=== PATIENT | female | born 1995 | race Caucasian/White ===

== ENCOUNTER 2019-12-18 14:02 | Emergency (ER) | payer MEDICAID ==
[2019-12-18] MEDS ORDERED: Fluorescein 1 MG Ophth Strip EYERT ONE (15:08)
[2019-12-18] MEDS ORDERED: Tetracaine HCl/PF 0.5% 4 ML Bottle EYERT ONE (15:08)
[2019-12-18] MEDS ORDERED: Ketorolac 60 MG/2 ML SDV IM ONE (15:24)
[2019-12-18] MEDS ORDERED: Dexamethasone/Tobramycin 0.1-0.3% Ophth Susp 2.5 ML Bottle EYERT SCH (15:30)
--- NOTE | 2019-12-18 15:30 | EDM.PDOC ---
ED HPI GENERAL MEDICAL PROBLEM - General Chief Complaint: Eye Problems Stated Complaint: EYE PROBLEMS Time Seen by Provider: 12/18/19 15:00 Source of Information: Reports: Patient History Limitations: Reports: No Limitations - History of Present Illness INITIAL COMMENTS - FREE TEXT/NARRATIVE: Patient presents to ER with complaints of right eye pain and swelling. Has discomfort to eye and around since yesterday. STarted noting eye irritation yesterday, thought it was possibly her contact so removed it. Did not notice any change. She applied ice packs without relief. Eye has been tearing, sensitive to light. Tried Visine to eye without relief. This am when she awoke, she had lid swelling and redness as well. Onset: Gradual Duration: Hour(s):, Getting Worse Location: Reports: Face Quality: Reports: Burning Severity: Severe Associated Symptoms: Reports: No Other Symptoms Eye Pain Score (Numeric/FACES): 9 - Related Data Allergies Allergy/AdvReac Type Severity Reaction Status Date / Time No Known Allergies Allergy Verified 12/18/19 15:00 Past Medical History - Past Health History Medical/Surgical History: Denies Medical/Surgical History - Past Surgical History HEENT Surgical History: Reports: Tonsillectomy Female Surgical History: Reports: Section, Other (See Below) Other Female Surgeries/Procedures: lapascropy for endometriosis Social & Family History - Tobacco Use Smoking Status *Q: Never Smoker - Recreational Drug Use Recreational Drug Use: No ED ROS GENERAL - Review of Systems Review Of Systems: See Below Constitutional: Denies: Fever, Chills, Malaise, Weakness HEENT: Reports: Eye Discharge, Eye Pain, Vision Change. Denies: Rhinitis, Sinus Problem, Throat Pain Respiratory: Denies: Shortness of Breath, Cough Cardiovascular: Denies: Chest Pain, Edema, Lightheadedness Endocrine: Denies: Fatigue GI/Abdominal: Reports: No Symptoms : Reports: No Symptoms Musculoskeletal: Reports: No Symptoms ED EXAM GENERAL W FULL EYE - Physical Exam Exam: See Below Exam Limited By: No Limitations General Appearance: Alert, WD/WN, Mild Distress Eye Exam: Right Eye: Conjunctival Injection, Corneal Abrasion, Left Eye: Normal Inspection, Bilateral Eye: EOMI, PERRL Visual Acuity (R) 20/: 100 (patient admits vision is very poor in her right eye without her contact, unsure of baseline) Eyelids: Right: Erythema Conjunctiva & Sclera: Right: Injected Cornea Exam: Right: Corneal Abrasion (has small abrasion to the center of pupil region), Examined with Flourescein Extraocular Movements: Bilateral: Intact Pupils: Normal Accommodation Pupillary Size: Bilateral: 4 mm Pupillary Reaction: Bilateral: Brisk ED EYE w/ Add Procedure - Eye Procedure Alcaine Drops Administered: Yes Course - Vital Signs Last Recorded V/S: Last Vital Signs Temp 97.8 F 12/18/19 15:04 Pulse 79 12/18/19 15:04 Resp 16 12/18/19 15:04 BP 146/79 H 12/18/19 15:04 Pulse Ox 100 12/18/19 15:04 - Orders/Labs/Meds Orders: Active Orders 24 hr Category Date Time Status Dexamethasone/Tobramycin [Tobradex Ophth Susp] Med 12/18/19 15:30 Active See Dose Instructions EYERT Q4H Medication Orders Tobramycin/Dexamethasone (Tobradex Ophth Susp) 0 ml EYERT Q4H BALTA Last Admin: 12/18/19 15:42 Dose: 2 drop Documented by: Meds: Medications Generic Name Dose Route Start Last Admin Trade Name Freq PRN Reason Stop Dose Admin Tobramycin/Dexamethasone 0 ml 12/18/19 15:30 12/18/19 15:42 Tobradex Ophth Susp EYERT 2 drop Q4H BALTA Administration Discontinued Medications Generic Name Dose Route Start Last Admin Trade Name Freq PRN Reason Stop Dose Admin Fluorescein Sodium 1 mg 12/18/19 15:08 Ful-Bev EYERT 12/18/19 15:09 ONETIME ONE Ketorolac Tromethamine 60 mg 12/18/19 15:24 12/18/19 15:43 Toradol IM 12/18/19 15:25 60 mg ONETIME ONE Administration Tetracaine HCl 1 ml 12/18/19 15:08 Tetracaine 0.5% Steri-Unit Olamide EYERT 12/18/19 15:09 ONETIME ONE Departure - Departure Time of Disposition: 15:46 Disposition: Home, Self-Care 01 Condition: Good Clinical Impression: Corneal abrasion, Uveitis of right eye - Discharge Information *PRESCRIPTION DRUG MONITORING PROGRAM REVIEWED*: No *COPY OF PRESCRIPTION DRUG MONITORING REPORT IN PATIENT MILA: No Instructions: Corneal Abrasion, [id number] Referrals: PCP,None [Primary Care Provider] - Forms: ED Department Discharge Additional Instructions: 1. Avoid use of contacts until eye is clear 2. Tylenol or ibuprofen for discomfort 3. Cool compresses to eye 4. Tobradex 2 drops to right eye 4 times a day for 7 days 5. Follow up with care transitions nurse if persistent pain, vision changes or concerns. Sepsis Event Note (ED) - Evaluation Sepsis Screening Result: No Definite Risk - Focused Exam Vital Signs: Vital Signs Temp Pulse Resp BP Pulse Ox 12/18/19 15:04 97.8 F 79 16 146/79 H 100 - My Orders Last 24 Hours: My Active Orders 12/18/19 15:30 Dexamethasone/Tobramycin [Tobradex Ophth Susp] See Dose Instructions EYERT Q4H - Assessment/Plan Last 24 Hours: My Active Orders 12/18/19 15:30 Dexamethasone/Tobramycin [Tobradex Ophth Susp] See Dose Instructions EYERT Q4H
== END 2019-12-18 16:26 | disposition home or self-care (01) ==
LOC: VM.ED 14:02
DX: S05.01XA Injury of conjunctiva and corneal abrasion without foreign body, right eye, initial encounter (principal); H20.9 Unspecified iridocyclitis; X58.XXXA Exposure to other specified factors, initial encounter
CPT/HCPCS: 96372; 99283; A9270; J1885